=== PATIENT | female | born 2000 | race Asian ===

== ENCOUNTER 2020-02-24 11:41 | Outpatient (CLI) | payer OTHER, SELFPAY ==
--- NOTE | ~2020-02-24 | XR_ITS ---
EXAMINATION: XR chest 2V 02/24/2020 12:01 INDICATION: Nonspecific reaction to tuberculin test PROCEDURE: 2 view chest COMPARISON: No prior studies for comparison. FINDINGS: The lungs are clear. The cardiomediastinal silhouette is within normal limits. There are no pleural effusions. There is no pneumothorax suspected. IMPRESSION: 1: NO ACUTE CARDIOPULMONARY DISEASE. Reviewed, dictated and finalized at location A.
== END 2020-02-24 11:42 | disposition home or self-care (01) ==
LOC: ANHIMG 11:49
PROVIDERS: PCP Family Medicine; Visit Provider Family Medicine
DX: R76.11 Nonspecific reaction to tuberculin skin test without active tuberculosis (principal)
CPT/HCPCS: 71046

== ENCOUNTER 2023-12-02 10:01 | Emergency (ER) | payer OTHER, SELFPAY ==
--- NOTE | ~2023-12-02 | CT_ITS ---
EXAMINATION: CT lumbar spine wo con DATE: 12/02/2023 11:21 INDICATION: Back pain TECHNIQUE: Computed tomography (CT) of the lumbar spine was performed without intravenous contrast. A utomated exposure control and iterative reconstruction technique were employed. The dose-length produ ct was 219.55 mGy-cm. COMPARISON: None FINDINGS: Alignment is normal. Vertebral body and disc heights are normal. No fractures. No pars interarticular is defects. Mild disc bulges without central canal stenosis at L4-L5 and L5-S1. There is multilevel m ild lumbar facet osteoarthritis. No significant neural foraminal stenosis. Paravertebral soft tissues are unremarkable. IMPRESSION: 1. Minimal lumbar spondylosis with mild disc bulges at L4-5 and L5-S1 and multilevel mild lumbar face t osteoarthritis. Reviewed, dictated and finalized at location A. IMPRESSION: 1. Minimal lumbar spondylosis with mild disc bulges at L4-5 and L5-S1 and multi level mild lumbar facet osteoarthritis.
[2023-12-02 10:02] VITALS: BP 129/72; PULSE 77; RESP 14; TEMP 36.6; O2SAT 100
--- NOTE | 2023-12-02 10:39 | ED.BACK ---
HPI - Back Pain/Injury General Chief Complaint: Back Pain/Injury Stated Complaint: low back pain, blood in stool Time Seen by Provider: 12/02/23 10:08 History of Present Illness HPI Narrative: Patient is a 23-year-old female who presents to the emergency department this morning complaining lower lumbar back pain that she had for the past few weeks. Patient admits that she has been training for marathon and recently ran to [employer] within the past few weeks /. Patient also noticed that throughout the past week she has noticed bright red blood in her stools. She does admit to history of hemorrhoids states that they do not usually bother in the common go. Stools are normal and brown in color. Patient denies any diarrhea or constipation. No fevers or chills at home, no urinary symptoms and is currently denying any additional symptoms or concerns at this time. Related Data Allergies Allergy/AdvReac Type Severity Reaction Status Date / Time No Known Allergies Allergy Verified 12/02/23 11:52 Review of Systems Review of Systems: All systems are reviewed and are negative unless stated otherwise in the HPI. Exam Narrative: General: Alert, awake, afebrile, in no acute distress. HEENT: PERRL, no rhinorrhea, no post nasal drip, oropharynx clear. Cardiovascular: Regular rate and rhythm, no murmurs, rubs or gallops, no peripheral edema. Respiratory: Clear to auscultation bilaterally, no tachypnea, no wheezing, no rhonchi, no rubs, no respiratory distress. Abdomen: Soft, nontender, nondistended, no rebound, no guarding, no peritoneal signs. Musculoskeletal: No joint swelling or deformity, normal muscle tone. Back: Midline tenderness to palpation over the lumbar spine. Skin: No rashes or petechia, no signs of infection. Neurological: Alert and oriented to person, place, and time. Follows all commands. No focal deficits, speech is clear and fluent. Course Vital Signs Vital signs: Vital Signs Temperature 97.9 F 12/02/23 10:02 Pulse Rate 77 12/02/23 10:02 Respiratory Rate 14 12/02/23 10:02 Blood Pressure 129/72 12/02/23 10:02 Pulse Oximetry 100 12/02/23 10:02 Oxygen Delivery Room Air 12/02/23 10:02 Temperature 97.9 F 12/02/23 10:02 Pulse Rate 77 12/02/23 10:02 Respiratory Rate 14 12/02/23 10:02 Blood Pressure 129/72 12/02/23 10:02 Pulse Oximetry 100 12/02/23 10:02 Oxygen Delivery Room Air 12/02/23 10:02 MDM - Back Pain/Injury MDM Narrative Medical decision making narrative: The patient was evaluated by myself in the emergency department. History is obtained from patient who is an independent historian and physical exam was performed. External medical records were reviewed at this time. IV was established and pertinent tests were ordered. Laboratory results obtained revealing no acute process. Urinalysis was unremarkable. Imaging studies obtained included CT lumbar spine without IV contrast which was independently interpreted by me revealing minimal lumbar spondylosis with mild disc bulges at L4-5 and L5-S1 and multilevel mild lumbar facet osteoarthritis. Patient was informed of this at bedside and provided with a copy of her CT report. She was informed that she will be provided with a spinal specialist to follow up with along with a sourcing manager if she continues to have rectal bleeding. Her hemoglobin is stable and she was informed that her rectal bleeding is likely due to hemorrhoids and since it is not causing her any pain this should resolve with time. If she continues to have rectal bleeding she needs to follow-up with the GI doctor for further evaluation and patient is agreeable. Differential diagnosis considerations include musculoskeletal strain, compression fracture, pyelonephritis, nephrolithiasis and hemorrhoids. Comorbidities impacting this visit include none. I have evaluated and discussed social determinants of health with the patient that could potentia
[2023-12-02 10:45] LABS: Basophils Percent Auto 0.6 % (0.2-1.2); Eosinophils Absolute Auto 0.5 K/mm3 (0-0.3); Hematocrit 43.2 % (37.0-47.0); Hemoglobin 14.9 g/dL (12.0-15.0); Immature Granulocyte Absolute 0.01 K/mm3 (0.00-0.031); Immature Granulocyte Percent A 0.2 % (0-0.5); Lymphocytes Percent Auto 40.6 % (18.3-44.2); Mean Corpuscular HGB Conc 34.5 g/dl (32-36); Mean Corpuscular Hemoglobin 29.4 pg (26-34); Mean Corpuscular Volume 85.4 fl (80-100); Mean Platelet Volume 10.6 fl (7.4-10.4); Monocytes Absolute Auto 0.5 K/mm3 (0.1-0.6); Monocytes Percent Auto 7.6 % (2.6-8.5); Neutrophils Absolute Auto 2.8 K/mm3 (1.3-6.7); Platelet Count Result 307 k/mm3 (150-375); Red Blood Count 5.06 M/mm3 (4.2-5.4); Red Cell Distribution Width 11.9 % (11.5-14.5); White Blood Count 6.4 K/mm3 (4.5-10.0)
[2023-12-02 10:46] LABS: Appearance Urine Clear (Clear); Bilirubin Urine Negative (Negative); Blood Urine Negative (Negative); Color Urine Yellow (Yellow); Glucose Urine UA Negative (Negative); Ketones Urine Negative (Negative); Leukocyte Esterase Ur Negative LEU/UL (Negative); Nitrate Urine Negative (Negative); Protein Urine Negative (Negative); Specific Grav Ur 1.009 (1.001-1.035); Urobilinogen Urine 0.2 mg/dL (<2.0)
[2023-12-02 10:48] LABS: Add Urine Microscopic? NO
[2023-12-02 10:59] LABS: Alanine Aminotransferase 21 U/L (6-35); Albumin Level 5.1 g/dL (3.5-5.1); Alkaline Phosphatase 48 U/L (38-126); Anion Gap 12 mmol/L (4-12); Aspartate Amino Transferase 28 U/L (14-36); Bilirubin,Total 1.1 mg/dL (0.2-1.3); Blood Urea Nitrogen 10 mg/dL (7-17); Calcium 9.5 mg/dL (8.4-10.2); Carbon Dioxide 23 mmol/L (22-30); Chloride 106 mmol/L (98-107); Estimated CRCL calculation 92 ml/min; Estimated Glomerular Filt Rate > 60; Glucose 92 mg/dL (65-110); Magnesium 2.1 mg/dL (1.6-2.3); Potassium 3.6 mmol/L (3.4-5.0); Sodium 141 mmol/L (137-145)
[2023-12-02 11:03] LABS: SPREG INTERNAL CONTROL Positive; Serum Qual hCG Negative
[2023-12-02 12:26] VITALS: BP 120/70; PULSE 70; RESP 18; O2SAT 100
== END 2023-12-02 12:27 | disposition home or self-care (01) ==
PROVIDERS: Emergency Provider Emergency Medicine; Referring Provider Emergency Medicine
DX: M51.36 Other intervertebral disc degeneration, lumbar region (principal)
CPT/HCPCS: 36415; 72131; 80053; 81003; 83735; 84703; 85025; 99284

== ENCOUNTER 2024-12-23 09:35 | Inpatient (IN) | payer OTHER, SELFPAY ==
[2024-12-23] VITALS (99 sets, daily range): BP systolic 118–180; BP diastolic 64–115; PULSE 56–97; TEMP 36.2–36.9; O2SAT 97–100; BMI 30.4
--- OUTSIDE RECORDS SUMMARY | 2024-12-23 10:19 | XMS_ITS | Referral Summary ---
Author Organization [facility] [place] [address] Address [address] [place] [id number] Care Team Providers Care Rfid Systems Engineer Name Role Phone Keturah Hicks Primary Care Provider + Allergies No known active allergies Medications , 1 mg-20 mcg (21)/75 mg (7) per tablet Take 1 tablet by mouth daily 09/23/2021 Active HYDROcodone-acet aminophen (NORCO) 5-325 mg per tablet Take 1 tablet by mouth every 8 (eight) hours as needed for pain 12/02/2023 Active ibuprofen (ADVIL,MOTRIN) 400 mg tablet Take 1 tablet (400 mg total) by mouth every 8 (eight) hours as needed 12/02/2023 Active cyclobenzaprine (FLEXERIL) 5 mg tablet Take 1 tablet (5 mg total) by mouth 3 (three) times a day as needed for muscle spasms 30 tablet 12/13/2023 Active meloxicam (MOBIC) 15 mg tabletIndication s:Lumbar herniated disc TAKE 1 TABLET (15 MG TOTAL) BY MOUTH DAILY. 30 tablet 01/10/2024 Active Active Problems No known active problems Immunizations Immunization Administration Dates Next Due DTaP 01/04/2004, 1,01/16/2000,09/12,07/13/1999 Hep B, Adolescent or Pediatric 11/15/1999,1999,07/13/1999 HiB 01/16/2000, 0,09/13/1999,07/13 IPV 01/04/2004, 0,09/13/1999,07/13 Influenza, Quadrivalent, Spl it, Preservative Free, Intramuscular 04/25/2021 Influenza, Unspecified 03/04/2023(Deferr ed: Patient decision),03/04/2022 MMR 01/04/2004,11/15/1999 Tdap 10/28/2019 Varicella 02/17/2016,11/15/1999 Social History Tobacco Use Types Packs/Day Years Used Date Smoking Tobacco: Never Tobacco Cessation:Counseling Given: Not Answered PHQ-2 Answer Date Recorded PHQ-2 Total Score (If total score is 3 or more points, staff should administer the PHQ-9) 0 12/13/2023 Personal Safety Answer Date Recorded Getting School Help Needed Not on file 06/05 Comments Unknown Sex and Gender Information Value Date Recorded Sex Assigned at Not on file Legal Sex Female 8:32 AM CDT Gender Identity Not on file Sexual Orientation Not on file Last Filed Vital Signs Vital Sign Reading Time Taken Comments Blood Pressure 116/70 12/13/2023 1:56 PM CDT Pulse 80 12/13/2023 1:56 PM CDT Temperature 36.6 C (97.9 F) 12/13/2023 1:56 PM CDT Respiratory Rate 18 12/13/2023 1:56 PM CDT Oxygen Saturation 98% 12/13/2023 1:56 PM CDT Inhaled Oxygen Concentration - - Weight 60.3 kg (133 lb) 12/13/2023 1:56 PM CDT Height 157.5 cm (5' 2) 12/13/2023 1:56 PM CDT Body Mass Index 24.33 12/13/2023 1:56 PM CDT Plan of Treatment Not on file Insurance [facility] CHOICE PLUS Member Subscriber Plan / Payer (Ef fective 2022-Present) Name:Rylee Spain Relation to Subscriber:Self Name:Rylee Spain Payer ID:[id number] (NA) Type:[facility] HMO/PPO Address: [place] [phone] [facility] CHOICE PLUS Care Teams Rfid Systems Engineer Relationship Specialty Start Date End Date Keturah Hicks PA PCP - General Family Medicine 12/13/23
--- OUTSIDE RECORDS SUMMARY | 2024-12-23 10:19 | XMS_ITS | Clinical Summary ---
Author Organization [facility] [place] [address] Address [address] [place] [phone] Care Team Providers Care Steam Presser Name Role Phone Keturah Hicks Primary Care [...] on file Sexual Orientation Not on file Obstetrics History Last Filed Vital Signs Vital Sign Reading [...] 12/13/2023 1:56 PM CDT Plan of Treatment Health Maintenance Due Date Last Done Comments Cervical Cancer Screening 1998 Hepatitis C Screening 1998 HPV Vaccines (1 - 3-dose series) 2013 Regular Well Visit/Exam 18-64 11/17/2023 11/16/2022 Covid-19 Vaccine ( season) 2024 04/25/2021, 08/21/2020, 07/31/2020 Depression Screening 12/12/2024 12/13/2023, 11/17/19 Influenza Vaccine (Season Ended) 2025 03/04/2022, 04/25/2021 DTaP/Tdap/Td Vaccine (7 - Td or Tdap) 10/27/2029 10/28/2019, 01/04/2004, 07/24/2000, Additional history exists Hepatitis B Screening Completed 11/15/1999 , 09/13/1999, 07/13/1999 Varicella Vaccines Completed 02/17/2016, 11/15/1999 Pneumococcal vaccine <65 Aged Out No longer eligible based on patient's age to complete this topic Insurance CHOICE PLUS [facility] HMO/PPO Address: [address] [address] [place] [address] CHOICE PLUS [facility] HMO/PPO Address: [address] [address] [place] [address] Care Teams Steam Presser Relationship Specialty Start Date End Date Keturah Hicks PA PCP - General Family Medicine 12/13/23
[2024-12-23 11:10] LABS: Hematocrit 38.8 % (37.0-47.0); Hemoglobin 13.5 g/dL (12.0-15.0); Immature Granulocyte Percent A 0.2 % (0-0.5); Lymphocytes Absolute Auto 1.55 K/mm3 (0.9-3.2); Mean Corpuscular HGB Conc 34.8 g/dl (32-36); Mean Corpuscular Hemoglobin 30.6 pg (26-34); Mean Corpuscular Volume 88.0 fl (80-100); Nucleated Red Blood Cells Absolute Auto 0.000 K/mm3 (0.0-0.012); Nucleated Red Blood Cells Perc 0.0 % (0.0-0.2); Platelet Count Result 196 k/mm3 (150-375); Red Blood Count 4.41 M/mm3 (4.2-5.4); White Blood Count 6.2 K/mm3 (4.5-10.0)
--- NOTE | 2024-12-23 11:15 | LDADM ---
This patient, Rylee Spain, was admitted to Labor/Delivery/Recovery 103 on 12/23/24 at 09:35. Plans for labor, pain management and were discussed with patient. Patient/family oriented to hospital policies and general routines including ID bracelet, bed and alarms, visiting hours, pain management, procedures, bathroom and other care routines, personal items, smoking policy, room service/diet and guest tray routines, security routines, and visiting hours. Patient/Family are encouraged to report perceived risks to care and to ask questions if they do not understand what they are told or what they should do. See OBIX for further documentation.
[2024-12-23] MEDS: LACTATED RINGERS 1,000 ML 125 ML IV CONT ×3 (11:30→22:41)
[2024-12-23] MEDS: AMPICILLIN SODIUM 2 GM in SODIUM CHLORIDE 0.9% IV 100 ML 200 ML IVPB (11:30)
[2024-12-23 11:35] LABS: Alanine Aminotransferase 60 U/L (6-35); Albumin Level 3.4 g/dL (3.5-5.1); Alkaline Phosphatase 213 U/L (38-126); Anion Gap 10 mmol/L (4-12); Aspartate Amino Transferase 81 U/L (14-36); Bilirubin,Total 0.6 mg/dL (0.2-1.3); Blood Urea Nitrogen 10 mg/dL (7-17); Calcium 9.2 mg/dL (8.4-10.2); Carbon Dioxide 17 mmol/L (22-30); Chloride 109 mmol/L (98-107); Estimated Glomerular Filt Rate > 60; Glucose 111 mg/dL (65-110); Potassium 3.9 mmol/L (3.4-5.0); Sodium 136 mmol/L (137-145); Total Protein 7.2 g/dL (6.3-8.2); Uric Acid 10.0 mg/dL (2.5-7.5)
[2024-12-23 11:42] LABS: OBXCEM ROM Plus Positive (Negative)
[2024-12-23] MEDS: OXYTOCIN 30 UNITS/NS 500 ML 30 UNITS/500 ML BAG IV CONT (11:58)
[2024-12-23 12:03] LABS: Syphilis IgG/IgM Antibody Non-Reactive (Nonreactive)
--- NOTE | 2024-12-23 13:06 | PM.IMHP ---
H&P: HPI History of Present Illness Date/Time: 12/23/24 13:06 Chief Complaint: leaking fluid Narrative: patient is a 24-year-old at 40 4/7 weeks presents for SROM at 0400 clear. SROM confirmed. Irregular contractions. Cervix . On admission blood pressures elevated. course significant for elevated blood pressures at 38 weeks with repeated follow-up normal blood pressures. Her blood pressures today were increased. She denied any severe headache scotomata or right upper quadrant pain. Her PIH labs showed AST of 81 ALT of 60, platelets normal. Blood pressure is elevated to 140s over low 100s. PNC significant for GBS positive. Review of Systems Review of Systems: All systems reviewed & are unremarkable except as noted in HPI and below Constitutional: Constitutional: Reports no additional constitutional complaints and Denies headache(s) Eyes: Eyes: Denies spots in vision ENT: Reports system reviewed and no additional complaints, except as documented and Denies headache(s) Cardiovascular: Cardiovascular: Denies chest pain and Denies dyspnea Respiratory: Respiratory: Denies dyspnea Gastrointestinal: Gastrointestinal: Reports no additional gastrointestinal complaints Genitourinary: Genitourinary: Reports amenorrhea Musculoskeletal: Musculoskeletal: Reports no additional musculoskeletal complaints Integumentary/Breasts: Skin/Breast: Denies breast mass and Denies rash Neurologic: Denies headache(s) Psychiatric: Psychiatric: Reports no additional psychiatric complaints [facility] Past Medical History Medical History Gestational hypertension Spontaneous within last 12 months Family History Family History Other Unknown family medical history Social History Social History Smoking status: Never smoker Second hand tobacco smoke exposure: No Alcohol intake: current Substance use: never Do You Feel Safe in your Home?: Yes Lack of Transportation: No Lack of Food: Never True Current Housing: I Have Housing Concerned About Future Housing: No Difficulty Paying Gas/Electric Bills: No Difficulty Paying for Meds: No Currently Unemployed: No Education: Bachelor's Degree Difficulty w/ Childcare or Family Care: No Spiritual care concerns: No Meds Home Medications and Allergies Home Medications ?Medication ?Instructions ?Recorded ?Confirmed ?Type [id number]-[id number] 3 fatty no.1 27 cap PO 11/19/24 12/16/24 History mg-1 mg-300 mg capsule Allergies Allergy/AdvReac Type Severity Reaction Status Date / Time No Known Allergies Allergy Verified 12/16/24 10:12 Vital Signs Vital Signs - 24 hr 12/23/24 10:45 12/23/24 10:46 12/23/24 10:51 Temperature 97.7 F Pulse Rate 92 92 Blood Pressure 163/105 H 149/99 H Oxygen Delivery 12/23/24 11:00 12/23/24 11:15 12/23/24 11:15 Temperature Pulse Rate 87 93 Blood Pressure 150/95 H 139/106 H Oxygen Delivery Room Air 12/23/24 11:56 12/23/24 12:01 12/23/24 12:30 Temperature 97.9 F Pulse Rate 87 82 Blood Pressure 140/101 H 143/98 H Oxygen Delivery 12/23/24 13:00 Temperature Pulse Rate 81 Blood Pressure 151/95 H Oxygen Delivery Exam Const: General: no acute distress Eyes: General: appearance normal, both eyes and all related structures Resp: Effort & Inspection: normal respiratory effort Cardio: Rate: regular rate GI: Other: Gravid no fundal tenderness no right upper quadrant pain Skin: General skin exam: no rashes or lesions noted Neuro: Cognition (Neuro): normal cognition Extrem: General: normal to inspection Psych: Mental Status: mental status grossly normal H&P: Results Labs Labs: Short CBC 12/23/24 Range/Units 10:57 WBC 6.2 (4.5-10.0) K/mm3 Hgb 13.5 (12.0-15.0) g/dL Hct 38.8 (37.0-47.0) % Plt Count 196 (150-375) k/mm3 BMP 12/23/24 10:57 Sodium 136 L Potassium 3.9 Chloride 109 H Carbon Dioxide 17 L BUN 10 Creatinine 0.92 Glucose 111 H Calcium 9.2 Liver Function 12/23/24 Range/Units 10:57 Total Bilirubin 0.6 (0.2-1.3) mg/dL AST 81 H (14-36) U/L ALT 60 H (6-35) U/L Alkaline Phosphatase 213 H (38-126) U/L Albumin 3.4 L (3.5-5.1) g/dL Assessment and Plan Assessment and plan (1) Gestational hypertension: Code(s): O13.9 - Gestational [-induced] hypertension without significant proteinuria, unspecified trimester Status: Acute Assessment and Plan: protein creatinine ratio pending. Severe features of liver function test increased greater than 2. Plan for Magnesium in active labor. (2) Premature rupture of membranes: Code(s): O42.90 - Premature rupture of membranes, unspecified as to length of time between rupture and onset of labor, unspecified weeks of gestation Status: Acute Assessment and Plan: 1. Admit 2. Pitocin augmentation.
[2024-12-23] MEDS: FAMOTIDINE 20 MG/2 ML VIAL IV PUSH (14:21)
[2024-12-23] MEDS: AMPICILLIN SODIUM 1 GM in SODIUM CHLORIDE 0.9% IV 50 ML 100 ML IVPB ×3 (15:24→23:40)
--- NOTE | 2024-12-23 20:41 | P.PNAN_ITS ---
Anes - Eval Pre Procedure Procedure: labor pain management Date/Time: 12/23/24 20:41 Surgeon: Oracio Preop Diagnosis: pain during labor Pre Op Diagnosis: labor Patient Data Age: 24 Gender: F Height: 1.55 m Weight: 73 kg Last Vital Signs Temp 97.1 F L 12/23/24 17:58 Pulse 79 12/23/24 20:40 BP 140/84 12/23/24 20:40 Pulse Ox 98 12/23/24 20:37 O2 Del Method Room Air 12/23/24 11:15 Allergies Allergy/AdvReac Type Severity Reaction Status Date / Time No Known Allergies Allergy Verified 12/16/24 10:12 Home Medications ?Medication ?Instructions ?Recorded ?Confirmed ?Type IEO-dbpf-CZ-omega 3 fatty no.1 27 cap PO 11/19/24 12/16/24 History mg-1 mg-300 mg capsule Laboratory Tests 12/23/24 12/23/24 12/23/24 10:57 10:57 11:15 WBC 6.2 K/mm3 (4.5-10.0) RBC 4.41 M/mm3 (4.2-5.4) Hgb 13.5 g/dL (12.0-15.0) Hct 38.8 % (37.0-47.0) MCV 88.0 fl (80-100) MCH 30.6 pg (26-34) MCHC 34.8 g/dl (32-36) RDW 13.2 % (11.5-14.5) Plt Count 196 k/mm3 (150-375) MPV 12.2 H fl (7.4-10.4) Immature Gran % (Auto) 0.2 % (0-0.5) Neut % (Auto) 62.0 % (45.5-73.1) Lymph % (Auto) 25.2 % (18.3-44.2) [place] % (Auto) 8.3 % (2.6-8.5) Eos % (Auto) 3.7 % (0-4.4) Baso % (Auto) 0.6 % (0.2-1.2) Lymph # (Auto) 1.55 K/mm3 (0.9-3.2) [place] # (Auto) 0.5 K/mm3 (0.1-0.6) Eos # (Auto) 0.2 K/mm3 (0-0.3) Baso # (Auto) 0.0 K/mm3 (0.0-0.1) Abs Immat Gran (auto) 0.01 K/mm3 (0.00-0.031) Absolute Neuts (auto) 3.8 K/mm3 (1.3-6.7) Absolute Nucleated RBC 0.000 K/mm3 (0.0-0.012) Nucleated RBC % 0.0 % (0.0-0.2) Sodium 136 L mmol/L (137-145) Potassium 3.9 mmol/L (3.4-5.0) Chloride 109 H mmol/L (98-107) Carbon Dioxide 17 L mmol/L (22-30) Anion Gap 10 mmol/L (4-12) BUN 10 mg/dL (7-17) Creatinine 0.92 mg/dL (0.7-1.0) Estim Creat Clear Calc Not Reportable Estimated GFR > 60 (59 - ) Glucose 111 H mg/dL (65-110) Uric Acid Cancelled 10.0 H mg/dL (2.5-7.5) Calcium 9.2 mg/dL (8.4-10.2) Total Bilirubin 0.6 mg/dL (0.2-1.3) AST 81 H U/L (14-36) ALT 60 H U/L (6-35) Alkaline Phosphatase 213 H U/L (38-126) Total Protein 7.2 g/dL (6.3-8.2) Albumin 3.4 L g/dL (3.5-5.1) Membranes Rupture Rom plus positive (Negative) Syphilis IgG/IgM Ab Non-reactive (Nonreactive) Blood Type A Positive Antibody Screen Negative Patient hx anesthesia problems: none Family hx anesthesia problems: none Results Review: All pre-operative results and documents have been reviewed as part of the pre- operative evaluation. [facility] Past Medical History Medical History Gestational hypertension Spontaneous within last 12 months Family History Family History Other Unknown family medical history Social History Social History Smoking status: Never smoker Second hand tobacco smoke exposure: No Alcohol intake: current Substance use: never Do You Feel Safe in your Home?: Yes Lack of Transportation: No Lack of Food: Never True Current Housing: I Have Housing Concerned About Future Housing: No Difficulty Paying Gas/Electric Bills: No Difficulty Paying for Meds: No Currently Unemployed: No Education: Bachelor's Degree Difficulty w/ Childcare or Family Care: No Spiritual care concerns: No Exam Day of Procedure 12/23/24 20:41
[2024-12-23 21:30] LABS: Total Protein Urine Random 26 mg/dL; Ur Ttl Prot Creatinine Ratio 0.71 mg/mg (0-0.20)
[2024-12-24] VITALS (191 sets, daily range): BP systolic 103–157; BP diastolic 58–102; PULSE 51–138; RESP 12–18; TEMP 36.6–37.4; O2SAT 86–100
[2024-12-24] MEDS: AMPICILLIN SODIUM 1 GM in SODIUM CHLORIDE 0.9% IV 50 ML 100 ML IVPB ×2 (03:57→08:04)
[2024-12-24 05:18] LABS: Hematocrit 38.2 % (37.0-47.0); Hemoglobin 13.3 g/dL (12.0-15.0); Immature Granulocyte Percent A 0.5 % (0-0.5); Lymphocytes Absolute Auto 1.48 K/mm3 (0.9-3.2); Mean Corpuscular HGB Conc 34.8 g/dl (32-36); Mean Corpuscular Hemoglobin 30.9 pg (26-34); Mean Corpuscular Volume 88.6 fl (80-100); Nucleated Red Blood Cells Absolute Auto 0.020 K/mm3 (0.0-0.012); Nucleated Red Blood Cells Perc 0.2 % (0.0-0.2); Platelet Count Result 147 k/mm3 (150-375); Red Blood Count 4.31 M/mm3 (4.2-5.4); White Blood Count 12.4 K/mm3 (4.5-10.0)
[2024-12-24 05:39] LABS: Alanine Aminotransferase 51 U/L (6-35); Albumin Level 3.0 g/dL (3.5-5.1); Alkaline Phosphatase 235 U/L (38-126); Anion Gap 8 mmol/L (4-12); Aspartate Amino Transferase 66 U/L (14-36); Bilirubin,Total 1.1 mg/dL (0.2-1.3); Blood Urea Nitrogen 11 mg/dL (7-17); Calcium 8.6 mg/dL (8.4-10.2); Carbon Dioxide 16 mmol/L (22-30); Chloride 109 mmol/L (98-107); Estimated CRCL calculation 61 ml/min; Estimated Glomerular Filt Rate 58; Glucose 73 mg/dL (65-110); Potassium 4.3 mmol/L (3.4-5.0); Sodium 133 mmol/L (137-145); Total Protein 6.4 g/dL (6.3-8.2)
[2024-12-24] MEDS: LACTATED RINGERS 1,000 ML 75 ML IV CONT (06:20)
[2024-12-24] MEDS: MAGNESIUM SULF 4 GM/WATER100ML 4 GM/100 ML BAG IVPB (06:42)
[2024-12-24] MEDS: MAGNESIUM SULF 20GM/WATER500ML 500 ML 50 MG IV CONT ×2 (07:11→16:20)
[2024-12-24] MEDS: ONDANSETRON INJ 4 MG/2 ML VIAL IV PUSH (08:12)
--- NOTE | 2024-12-24 08:40 | P.PNOB_ITS ---
OB - PN: Subj Subjective Date/time seen: 12/24/24 08:40 Interval history: fht 135 cat 1, continue pitocin. No severe symptoms. Labs reviewed. Continue magnesium. OB - PN: Obj Data Labs 12/24/24 04:57 12/24/24 04:57 Labs: Laboratory Results - last 24 hr 12/23/24 12/23/24 12/23/24 10:57 10:57 11:15 WBC 6.2 RBC 4.41 Hgb 13.5 Hct 38.8 MCV 88.0 MCH 30.6 MCHC 34.8 RDW 13.2 Plt Count 196 MPV 12.2 H Immature Gran % (Auto) 0.2 Neut % (Auto) 62.0 Lymph % (Auto) 25.2 [place] % (Auto) 8.3 Eos % (Auto) 3.7 Baso % (Auto) 0.6 Lymph # (Auto) 1.55 [place] # (Auto) 0.5 Eos # (Auto) 0.2 Baso # (Auto) 0.0 Abs Immat Gran (auto) 0.01 Absolute Neuts (auto) 3.8 Absolute Nucleated RBC 0.000 Nucleated RBC % 0.0 Sodium 136 L Potassium 3.9 Chloride 109 H Carbon Dioxide 17 L Anion Gap 10 BUN 10 Creatinine 0.92 Estim Creat Clear Calc Not Reportable Estimated GFR > 60 Glucose 111 H Uric Acid Cancelled 10.0 H Calcium 9.2 Total Bilirubin 0.6 AST 81 H ALT 60 H Alkaline Phosphatase 213 H Total Protein 7.2 Albumin 3.4 L U Random Total Protein Urine Creatinine Protein/Creat Ratio 2 Membranes Rupture Rom plus positive Syphilis IgG/IgM Ab Non-reactive Blood Type A Positive Antibody Screen Negative 12/23/24 12/24/24 21:21 04:57 WBC 12.4 H RBC 4.31 Hgb 13.3 Hct 38.2 MCV 88.6 MCH 30.9 MCHC 34.8 RDW 13.0 Plt Count 147 L MPV 12.1 H Immature Gran % (Auto) 0.5 Neut % (Auto) 78.7 H Lymph % (Auto) 11.9 L [place] % (Auto) 7.7 Eos % (Auto) 1.0 Baso % (Auto) 0.2 Lymph # (Auto) 1.48 [place] # (Auto) 1.0 H Eos # (Auto) 0.1 Baso # (Auto) 0.0 Abs Immat Gran (auto) 0.06 H Absolute Neuts (auto) 9.7 H Absolute Nucleated RBC 0.020 H Nucleated RBC % 0.2 Sodium 133 L Potassium 4.3 Chloride 109 H Carbon Dioxide 16 L Anion Gap 8 BUN 11 Creatinine 1.13 H Estim Creat Clear Calc 61 Estimated GFR 58 L Glucose 73 Uric Acid Calcium 8.6 Total Bilirubin 1.1 AST 66 H ALT 51 H Alkaline Phosphatase 235 H Total Protein 6.4 Albumin 3.0 L U Random Total Protein 26 Urine Creatinine 36.8 Protein/Creat Ratio 2 0.71 H Membranes Rupture Syphilis IgG/IgM Ab Blood Type Antibody Screen OB - PN A/P Time Spent With Patient Time: Total time spent is greater than 50% in coordination of care (as documented) at patient's floor/unit and/or counseling patient:
[2024-12-24] MEDS: OXYTOCIN 30 UNITS/NS 500 ML 30 UNITS/500 ML BAG 999 UNITS IV CONT (11:40)
--- NOTE | 2024-12-24 12:35 | PM.OBPRVD ---
OB - Vaginal Delivery Note Procedure Delivery date: 12/24/24 Events: Positive Group B Strep (GBS) and Preeclampsia w severe features Delivery augmentation: Pitocin Delivery monitor: External FHT and Internal Uterine Route of delivery: Laceration Description: Perineal - 2nd Degree and Vaginal ( Right and left lower sulcus) Delivery repair: vicryl ( to 2.0 and 3-0 Vicryl) Specimen: Yes ( placenta and cord) Quantitative Blood Loss (ml): 375 Anesthesia type: Epidural Disposition: Floor Complications: No immediate complications Narrative: patient was admitted after confirmation of rupture of membranes. Cervix was 1.5 cm. She was started on Pitocin augmentation. She also was started on ampicillin due to positive GBS carrier. Her blood pressures were elevated to 140s over 100s. This did improve. Her PIH labs significant for elevated liver function tests greater than 2 times normal. So had brisk reflexes and clonus. She was started on magnesium in active labor. No fevers throughout labor. She dilated to complete and delivered a male . Peds available. Nose and mouth of the were suctioned at the perineum. With the next push the anterior shoulders and the rest the infant was delivered with gentle traction. was vigorously crying and placed on maternal abdomen. Delayed cord clamping for 1 minute until cord was a pulsatile and then cord was doubly clamped and cut. Cord blood and cord gases obtained. Pitocin started. Placenta delivered intact. She sustained a second-degree perineal laceration. A rectal exam was performed and the rectum was intact and also the sphincter was intact. She also sustained a vaginal laceration at the left and right lower vagina. She was repaired with 3-0 Vicryl and 2 0 Vicryl. She was given additional pain medicine for analgesia which did help her pain. Sponge count correct. EBL 375 cc. Will continue magnesium for 24 hours. Baby Date of : 12/24/24 Time of : 11:29 Gestational Age by Date: 40 Infant gender: Male Weight (pounds): 8 Weight (ounces): 12 presentation: vertex position: Right Occiput Anterior Placenta delivery description: Expressed ( trailing membranes) Cord Vessel Description: 3 Vessels ( cord was wrapped around the lower legs X2.), Clamped/Cut, Delayed Cord Clamping and Around Extremity score one minute: 8 score five minutes: 9
--- NOTE | 2024-12-24 13:56 | S_PTH ---
PATIENT: Rylee Spain LOC: [facility] U#:[id number] AGE/SX: 24/F ROOM: 282 RE12/23/[address]: Abdulaziz Taylor MD : [id number] BED: 00 DIS: 12/27/2024 SPEC #: [id number] RECD: 12/25/24 06:47 STATUS: SAÚL REQ #: [id number] BLANCHE: 12/24/24 13:[address]: Abdulaziz Taylor DEPT: [facility] Surgical RECD BY: Carole Velez ENTERED: 12/25/24 06:47 SP TYPE: Surgical OTHR DR: Danial Narayanan MD REAR LOAD TRUCK DRIVER PHYSICIAN Tissues: A - Placenta Procedures: Hematoxylin and Eosin Stain Gross and Microscopic Level 5
[2024-12-24] MEDS: WITCH HAZEL 40 PADS 1 PAD TOPICAL (14:18)
[2024-12-24] MEDS: fentaNYL CITRATE INJ (*CRX) 100 MCG/2 ML VIAL 50 MCG IV PUSH (14:19)
--- NOTE | 2024-12-24 14:40 | OBPPTRN ---
Patient transferred to post room #282 via wheelchair. Support person present. Oriented to unit, room, information board, rooming in, admission packet and security measures. Patient verbalizes understanding.
[2024-12-24] MEDS: IBUPROFEN 600 MG TABLET PO (14:43)
[2024-12-24] MEDS: ACETAMINOPHEN 325 MG TABLET 650 MG PO (17:37)
[2024-12-24] MEDS: DOCUSATE SODIUM 100 MG CAPSULE PO (17:37)
--- NOTE | 2024-12-24 17:44 | PC.NURSE ---
Introductions were made, then consulted with patient to assess needs related to . Mother led the conversation with her?plans to feed?her and the?experience so far. Mother plans to breastfeed exclusively and denies questions at this time.
[2024-12-25] VITALS (7 sets, daily range): BP systolic 103–146; BP diastolic 57–97; PULSE 77–95; RESP 16–20; TEMP 36.4–37.2; O2SAT 97–100
[2024-12-25] MEDS: LACTATED RINGERS 1,000 ML 75 ML IV CONT
[2024-12-25] MEDS: MAGNESIUM SULF 20GM/WATER500ML 500 ML 50 MG IV CONT (02:13)
[2024-12-25 05:40] LABS: Hematocrit 27.9 % (37.0-47.0); Hemoglobin 9.6 g/dL (12.0-15.0); Mean Corpuscular HGB Conc 34.4 g/dl (32-36); Mean Corpuscular Hemoglobin 31.0 pg (26-34); Mean Corpuscular Volume 90.0 fl (80-100); Platelet Count Result 152 k/mm3 (150-375); Red Blood Count 3.10 M/mm3 (4.2-5.4); White Blood Count 20.6 K/mm3 (4.5-10.0)
[2024-12-25 06:05] LABS: Alanine Aminotransferase 33 U/L (6-35); Albumin Level 2.8 g/dL (3.5-5.1); Alkaline Phosphatase 182 U/L (38-126); Anion Gap 7 mmol/L (4-12); Aspartate Amino Transferase 62 U/L (14-36); Bilirubin,Total 0.5 mg/dL (0.2-1.3); Blood Urea Nitrogen 12 mg/dL (7-17); Calcium 7.4 mg/dL (8.4-10.2); Carbon Dioxide 20 mmol/L (22-30); Chloride 103 mmol/L (98-107); Estimated CRCL calculation 61 ml/min; Estimated Glomerular Filt Rate 58; Glucose 102 mg/dL (65-110); Potassium 4.1 mmol/L (3.4-5.0); Sodium 130 mmol/L (137-145); Total Protein 5.8 g/dL (6.3-8.2)
[2024-12-25] MEDS: DOCUSATE SODIUM 100 MG CAPSULE PO (08:20)
[2024-12-25] MEDS: MULTIVIT/MIN/PREN/FOL AC/IRON TABLET 1 TAB PO (08:20)
--- NOTE | 2024-12-25 08:21 | PC.NURSE ---
Consulted with patient to assess needs related to . Discussed with mother her successes, concerns and any questions she has. Mother was nursing baby boy upon entering the room, primary RN assisted with latching . Mother is on MAG and does not feel great which is why the assistance has been provided. Otherwise, mother states that she is able to latch infant independently. She denies any nipple discomfort and is responsively . Mother declines any additional assistance or education at this time. Mother is encouraged to call for assistance if her doesn?t latch, pain with latching, questions or concerns. Mother voiced understanding. Reported to the Primary RN.
--- NOTE | 2024-12-25 14:35 | P.PNOB_ITS ---
OB - PN: Subj Subjective Date/time seen: 12/25/24 08:35 Interval history: She denies headache scotomata or right upper quadrant pain has fatigue from the magnesium. Patient comments: pain well controlled, tolerating diet and other (Decreasing lochia.) [place] baby status: doing well and nursing well feeding status: exclusively breast feeding OB - PN: Obj Data Labs 12/25/24 04:21 12/25/24 04:21 Labs: Laboratory Results - last 24 hr 12/25/24 04:21 WBC 20.6 H RBC 3.10 L Hgb 9.6 L D Hct 27.9 L MCV 90.0 MCH 31.0 MCHC 34.4 RDW 13.4 Plt Count 152 MPV 12.2 H Sodium 130 L Potassium 4.1 Chloride 103 Carbon Dioxide 20 L Anion Gap 7 BUN 12 Creatinine 1.14 H Estim Creat Clear Calc 61 Estimated GFR 58 L Glucose 102 Calcium 7.4 L Total Bilirubin 0.5 AST 62 H ALT 33 Alkaline Phosphatase 182 H Total Protein 5.8 L Albumin 2.8 L OB - PN A/P Assessment and Plan (1) Vaginal delivery: Code(s): O80 - Encounter for full-term uncomplicated delivery Status: Acute Assessment and Plan: Doing well. (2) Pre-eclampsia: Code(s): O14.90 - Unspecified pre-eclampsia, unspecified trimester Status: Acute Assessment and Plan: No symptoms. Labile elevated blood pressure. Will add Labetolol. Not severe range or symptoms. LFT decreasing. Will discontinue Magnesium after 24 hours. Plan day: 1 Plan: routine care Comments: Patient doing well. Time Spent With Patient Time: Total time spent is greater than 50% in coordination of care (as documented) at patient's floor/unit and/or counseling patient: Exam 2 Psych: Affect: normal affect Other: Abd: fundus firm below umbilicus, nontender Perineum: sutures intact no signs of infection Ext: nontender
[2024-12-25] MEDS: IBUPROFEN 600 MG TABLET PO (15:18)
[2024-12-25] MEDS: LABETALOL HCL 100 MG TABLET 200 MG PO (15:19)
--- NOTE | 2024-12-25 16:45 | PC.NURSE ---
Called to patients bedside to assist with latching . Mother is feeling weak and needs assistance with positioning infant for feeding. was placed in laid back position and was able to latch and maintain latch without pain to mother.
--- NOTE | 2024-12-25 16:48 | PC.NURSE ---
1000: Called to patients bedside to assist with latching . Mother is feeling weak and needs assistance with positioning infant for feeding. was placed in laid back position and was able to latch and maintain latch on the left breast without pain to mother. 1230: Called to patients bedside to assist with latching . Infant was placed in cradle position and was able to latch and maintain latch without pain to mother on the right breast.
[2024-12-26] VITALS (8 sets, daily range): BP systolic 105–125; BP diastolic 52–79; PULSE 75–90; RESP 14–16; TEMP 36.7–36.8; O2SAT 96–99
--- NOTE | 2024-12-26 08:30 | PC.NURSE ---
Patient has baby at breast in football hold. Baby is not aligned well so mom was shown how to turn his head to allow him to take a bigger mouthful of breast. He was smacking initially but stopped after we adjusted positioning. Mom is encouraged to keep baby close to the breast. She has some nipple soreness. Reviewed burping after feedings with parents. Baby has been cluster feeding today. Mom is encouraged to call out for any additional assistance needed today with feeding. Updated primary RN.
[2024-12-26] MEDS: MULTIVIT/MIN/PREN/FOL AC/IRON TABLET 1 TAB PO (08:37)
[2024-12-26] MEDS: DOCUSATE SODIUM 100 MG CAPSULE PO ×2 (08:37→17:02)
[2024-12-26] MEDS: LABETALOL HCL 100 MG TABLET 200 MG PO (08:38)
[2024-12-26] MEDS: IBUPROFEN 600 MG TABLET PO ×2 (08:39→17:02)
--- NOTE | 2024-12-26 13:14 | P.PNOB_ITS ---
OB - PN: Subj Subjective Date/time seen: 12/26/24 13:14 Interval history: She states she feels better after magnesium off, perineal pain improving, has ambulated without problems, denies scotomata or RUQ pain, or headache. Patient comments: pain well controlled, tolerating diet and other (Decreasing lochia.) [place] baby status: doing well and nursing well [place] feeding status: exclusively breast feeding OB - PN: Obj Data Labs 12/25/24 04:21 12/25/24 04:21 OB - PN A/P Assessment and Plan (1) Pre-eclampsia: Code(s): O14.90 - Unspecified pre-eclampsia, unspecified trimester Status: Acute Assessment and Plan: Blood pressures normal on antihypertensive. No PIH symptoms. Recheck LFT in am. (2) Vaginal delivery: Code(s): O80 - Encounter for full-term uncomplicated delivery Status: Acute Assessment and Plan: PPD 2. Doing well. Baby not being discharged today. Will continue current care. Plan day: 2 Plan: discharge home and other Comments: Patient doing well. Follow up 4-6 weeks. Discharge instructions provided. Time Spent With Patient Time: Total time spent is greater than 50% in coordination of care (as documented) at patient's floor/unit and/or counseling patient: Time with patient: less than 15 minutes Exam 2 Psych: Affect: normal affect Other: Abd: fundus firm below umbilicus, nontender Ext: nontender
--- NOTE | 2024-12-26 13:19 | P.DS_ITS ---
DS: Admitting Diagnosis Discharge Date 12/27/24 Admitting Diagnosis Pre-eclampsia with severe features. DS: Discharge Diagnosis Discharge Diagnosis (1) Pre-eclampsia: Code(s): O14.90 - Unspecified pre-eclampsia, unspecified trimester Status: Acute (2) Vaginal delivery: Code(s): O80 - Encounter for full-term uncomplicated delivery Status: Acute OB - DS: Summary Hospital Course Hospital Course: She was admitted for SROM and was noted to have elevated pressures and PIH labs significant for elevated liver enzyme >2x normal value. She had pitocin augmentation and then Magnesium started in active labor. She had a vaginal delivery. Magnesium was continued for 24 hours. Had elevated blood pressure after Magnesium discontinued and antihypertensive started. Blood pressures normal. LFT decreased after delivery. Baby required additional assessment and was not discharged on day 2. Patient blood pressures and pain continued to be monitored. OB Procedures : Ultrasound OB Procedures Intrapartum: Spontaneous Vag Delivery OB Procedures: : None Peripartum Data Infant Delivery Method: Natural Vaginal Laceration Description: Perineal - 2nd Degree and Vaginal ( Right and left lower sulcus) complications: none Status at Discharge Functional status at discharge: independent ambulation Time Spent with Patient Time attestation: Total time spent providing and/or coordinating discharge services: Exam Const: General: cooperative Orientation/consciousness: oriented to person, oriented to place and oriented to time HENMT: Face/Nose/Sinus: Normal external nose present Eyes: General: appearance normal, both eyes and all related structures Resp: Effort & Inspection: normal respiratory effort GI: Inspection: normal to inspection Skin: General skin exam: normal color Neuro: General: oriented to person, oriented to place and oriented to time Extrem: General: normal to inspection and no calf tenderness Psych: Appearance: grossly normal DS: Data Data Completed and Pending Completed studies during hospitalization: Pending at discharge 12/24/24 13:56 Surgical [PTH] Routine Discharge Plan Discharge Attending physician on discharge: Danial Narayanan Consulting providers: Lorraine Tello Discharging Clinician: Sriram Narvaez Patient Disposition: Home Activity: may shower and pelvic rest Diet: regular Discharge Instructions: Education: Mom and Baby Guide Given to: Mother Follow-Up: Call your delivering provider's office for an appointment to be seen in: 4 Weeks Mom and baby should come to the [facility] for the follow-up appointment. Appointment Date/Time: December 29, 2024 at 11:00 am What to expect at your follow-up visit:assessment Call [phone] if you are unable to keep your appointment time. BREAST CARE: * Wear a snug supportive bra. * For engorgement discomfort: Breast Feeding: * Apply warm moist washcloths * Express milk as needed to relieve engorgement * Wear loose clothing * For sore nipples: * Identify correct latch-on * Apply warm moist washcloths before and after nursing * Air dry nipples after nursing * May apply Lansinoh cream to nipples EPISIOTOMY/PERINEAL CARE: * Until bleeding stops, use your caridad bottle after urinating * Change your pad frequently throughout the day * You may take sitz baths several times a day (fill your bathtub with warm water and soak for 20 minutes.) Do NOT bathe in the water * No tub baths until seen by your physician - You may shower ACTIVITY: * Rest as much as possible. * Do not exercise or lift anything heavier than your baby (such as laundry or other children.) * Avoid stairs or driving as much as possible. * Do not put anything into the vagina. No douching, tampons, or sexual activity until seen by physician. NOTIFY PHYSICIAN IF YOU HAVE ANY QUESTIONS OR IF ANY OF THE FOLLOWING SYMPTOMS OCCUR: * If your episiotomy or incision becomes red, swollen, or more painful than what you have experienced in the hospital. * If your vaginal bleeding becomes foul smelling. * If your vaginal bleeding becomes more heavy than a period or if your bleeding changes from pink to bright red. However, you may pass an occasional walnut- sized clot once or twice for the first week . * If you experience a sharp, shooting pain in you calves. * If you discover a hard, reddened area on your breast or if you experience flu- like symptoms. DIET: * Eat regular, well-balanced meals. * Drink plenty of fluids daily. If , drink to thirst. Patient Language: Lithuanian Stand Alone Forms: General Discharge Information Follow-up/Referrals: Danial Narayanan MD [Physician] - 4 Weeks Discharge Medications: New ibuprofen 600 mg Tablet 600 mg PO Q6H PRN (Reason: Cramping) Qty: 20 0RF labetalol 100 mg Tablet 100 mg PO Q12HR Qty: 60 0RF Continued [id number] 3 fatty no.1 27-1-300 mg capsule PO Date of admission: 12/23/24 09:35 Primary Care Provider: PHYSICIAN,AIR CARRIER OPERATIONS INSPECTOR Admitting Provider: Abdulaziz Taylor Attending physician on admission: Abdulaziz Taylor Condition: Stable
[2024-12-26 14:56] LABS: Aspartate Amino Transferase 52 U/L (14-36)
--- NOTE | 2024-12-26 17:40 | PC.NURSE ---
Patient is struggling to wake baby for feeding. He is undressed and laid out on the pillow in front of mom. Educated on how to wake baby with stimulation, talking, and position change. Baby began to root so we placed him at the breast in cross cradle hold. He quickly grasped the nipple and latched. Mom was shown how to reposition baby for proper alignment. His nose was smashed into the breast so we moved him until he had a free nostril but his chin was still on the breast. Mom plans to supplement with formula after due to infants decreased blood glucose levels today. Mom is encouraged to call out if she has further questions or needs assistance with latching to the other breast. Primary RN updated.
[2024-12-26] MEDS: LABETALOL HCL 100 MG TABLET PO (20:31)
[2024-12-27 04:40] VITALS: BP 114/69; PULSE 86; RESP 16
--- NOTE | 2024-12-27 06:36 | PM.OBDSVD ---
DS: Admitting Diagnosis Discharge Date 12/27/2024 Admitting Diagnosis DS: Discharge Diagnosis Discharge Diagnosis (1) : Qualifiers: Weeks of gestation: 39 weeks Qualified Code(s): Z3A.39 - 39 weeks gestation of Code(s): Z34.90 - Encounter for supervision of normal , unspecified, unspecified trimester Status: Acute (2) Pre-eclampsia: Code(s): O14.90 - Unspecified pre-eclampsia, unspecified trimester Status: Acute OB - DS: Summary Hospital Course Hospital Course: She was admitted for SROM and was noted to have elevated pressures and PIH labs significant for elevated liver enzyme >2x normal value. She had pitocin augmentation and then Magnesium started in active labor. She had a vaginal delivery. Magnesium was continued for 24 hours. Had elevated blood pressure after Magnesium discontinued and antihypertensive started. Blood pressures normal. LFT decreased after delivery. Baby required additional assessment and was not discharged on day 2. Patient blood pressures and pain continued to be monitored. OB Procedures : PIH Mgmt OB Procedures Intrapartum: Spontaneous Vag Delivery OB Procedures: : None Peripartum Data Laceration Description: Perineal - 2nd Degree and Vaginal ( Right and left lower sulcus) Time Spent with Patient Time attestation: Total time spent providing and/or coordinating discharge services: DS: Data Data Completed and Pending Completed studies during hospitalization: Pending at discharge 12/24/24 13:56 Surgical [PTH] Routine Labs on day of discharge: Labs from last 24 hours 12/26/24 14:34 AST 52 H Discharge Plan Discharge Attending physician on discharge: Danial Narayanan Consulting providers: Abdulaziz Taylor Discharging Clinician: Sriram Narvaez Patient Disposition: Home Activity: may shower and pelvic rest Diet: regular Patient Instructions: Antibiotic Form Patient Language: Albanian Stand Alone Forms: General Discharge Information Follow-up/Referrals: Danial Narayanan MD [Physician] - 4 Weeks Discharge Medications: New ibuprofen 600 mg Tablet 600 mg PO Q6H PRN (Reason: Cramping) Qty: 20 0RF labetalol 100 mg Tablet 100 mg PO Q12HR Qty: 60 0RF Continued [id number] 3 fatty no.1 27-1-300 mg capsule PO Date of admission: 12/23/24 09:35 Primary Care Provider: PHYSICIAN,MID LEVEL BUSINESS ANALYST Admitting Provider: Danial Narayanan Attending physician on admission: Abdulaziz Taylor Condition: Stable
[2024-12-27 07:55] VITALS: PULSE 80
[2024-12-27] MEDS: LABETALOL HCL 100 MG TABLET PO (07:55)
[2024-12-27 07:56] VITALS: BP 120/69; PULSE 85; RESP 18; TEMP 36.9; O2SAT 96
[2024-12-27] MEDS: IBUPROFEN 600 MG TABLET PO ×2 (07:56→15:59)
[2024-12-27] MEDS: MULTIVIT/MIN/PREN/FOL AC/IRON TABLET 1 TAB PO (07:56)
[2024-12-27] MEDS: DOCUSATE SODIUM 100 MG CAPSULE PO ×2 (07:56→15:59)
--- NOTE | 2024-12-27 08:30 | PC.NURSE ---
Met with patient to offer services. Patient has continued to breastfeed and supplement overnight. Baby has lost 8%. Name/number on communication board. Patient agrees to call out for assistance as needed.
--- NOTE | 2024-12-27 11:30 | PC.NURSE ---
Patient called out for feeding assistance. Baby was circumcised this morning and is very sleepy. Parents are concerned because it has been several hours since he ate. They have undressed baby and placed him skin to skin. They have been trying for awhile without success so mom is encouraged to go ahead and supplement now and then resume first at the next feeding. Parents state they tried to feed the bottle but have been unable. Assisted mom with putting the nipple into baby's mouth when he doesn't open readily. He immediately began sucking and swallowing. Parents are encouraged to call out if they are unable to get baby to take at least 15ml. They also had some concerns about his skin. He appears to have generalized rash. Educated parents about rash, sleepiness after circumcision, and liquid tylenol that was given to baby for pain. Parents verbalized understanding and primary RN updated.
--- NOTE | 2024-12-27 14:57 | PC.NURSE ---
Patient viewed the discharge video Mother & Baby Care, The First Two Weeks. Patient was given the opportunity and encouraged to ask questions. Patient verbalized understanding of information shared and has been given the mother/baby guide for home reference.
[2024-12-27 16:16] VITALS: BP 130/76; PULSE 79; RESP 16; TEMP 36.7; O2SAT 98
[2024-12-29 11:11] VITALS: BP 116/90; PULSE 76; RESP 18; TEMP 36.7; O2SAT 100
== END 2024-12-27 18:30 | disposition home or self-care (01) | DRG 807 ==
LOC: ANHLDR 10:21 → ANHOB2 12-26 13:25 → ANHLDR 12-29 12:53 → ANHOB2 12-29 12:53
PROVIDERS: Obstetrics & Gynecology; Admitting Provider Obstetrics & Gynecology; Visit Provider Obstetrics & Gynecology
DX: O42.02 Full-term premature rupture of membranes, onset of labor within 24 hours of rupture (principal); Z37.0 Single live birth; Z3A.40 40 weeks gestation of pregnancy; O14.14 Severe pre-eclampsia complicating childbirth; O13.4 Gestational [pregnancy-induced] hypertension without significant proteinuria, complicating childbirth; O99.824 Streptococcus B carrier state complicating childbirth; O70.1 Second degree perineal laceration during delivery
CPT/HCPCS: 36415; 80053; 82570; 84112; 84156; 84450; 84550; 85025; 85027; 86593; 86850; 86900; 86901; 88307; A9270; J0290; J2405; J2590; J2795; J3010; J3475; J7120

== ENCOUNTER 2025-02-05 14:04 | Outpatient (CLI) | payer OTHER, SELFPAY ==
--- OUTSIDE RECORDS SUMMARY | 2025-02-05 14:18 | XMS_ITS | Clinical Summary ---
Author Organization [facility] [id number] Address [address] [place] [id number] Care Team Providers Care Customs Manager Name Role Phone Keturah Hicks Primary Care [...] 08/21/2020, 07/31/2020 Depression Screening 12/12/2024 12/13/2023, 11/17/19 23 Influenza Vaccine (#1) 2025 03/04/2022, 2020 DTaP/Tdap/Td Vaccine (7 - Td or Tdap) 10/27/2029 10/28/2019, 01/04/2004, 07/24/2000, Additional history exists Hepatitis B Screening Completed 11/15/1999 , 09/13/1999, 07/13/1999 Varicella Vaccines Completed 02/17/2016, 11/15/1999 Pneumococcal vaccine <65 Aged Out No longer eligible based on patient's age to complete this topic Insurance [facility] Address: [address] [address] [place] [address] [employer] [facility] Address: [address] [address] [place] [address] Care Teams Customs Manager Relationship Specialty Start Date End Date Keturah Hicks PA PCP - General Family Medicine 12/13/23
[2025-02-05 14:50] LABS: Hematocrit 36.4 % (37.0-47.0); Hemoglobin 12.3 g/dL (12.0-15.0); Mean Corpuscular HGB Conc 33.8 g/dl (32-36); Mean Corpuscular Hemoglobin 29.6 pg (26-34); Mean Corpuscular Volume 87.5 fl (80-100); Platelet Count Result 304 k/mm3 (150-375); Red Blood Count 4.16 M/mm3 (4.2-5.4); White Blood Count 6.3 K/mm3 (4.5-10.0)
[2025-02-05 15:03] LABS: Alanine Aminotransferase 20 U/L (6-35); Albumin Level 4.7 g/dL (3.5-5.1); Alkaline Phosphatase 69 U/L (38-126); Anion Gap 10 mmol/L (4-12); Aspartate Amino Transferase 33 U/L (14-36); Bilirubin,Total 0.6 mg/dL (0.2-1.3); Blood Urea Nitrogen 21 mg/dL (7-17); Calcium 9.7 mg/dL (8.4-10.2); Carbon Dioxide 25 mmol/L (22-30); Chloride 104 mmol/L (98-107); Estimated Glomerular Filt Rate > 60; Glucose 94 mg/dL (65-110); Potassium 4.3 mmol/L (3.4-5.0); Sodium 139 mmol/L (137-145); Total Protein 8.4 g/dL (6.3-8.2)
== END 2025-02-05 14:05 | disposition home or self-care (01) ==
LOC: ANHLAB 14:05
PROVIDERS: Visit Provider Obstetrics & Gynecology
DX: O14.90 Unspecified pre-eclampsia, unspecified trimester (principal); Z3A.00 Weeks of gestation of pregnancy not specified
CPT/HCPCS: 36415; 80053; 85027